=== PATIENT | male | born 1950 | race Caucasian/White ===

== ENCOUNTER 2017-06-06 12:02 | Day surgery (SDC) | payer MEDICARE, OTHER ==
[2017-06-06] MEDS ORDERED: MIDAZOLAM 1 MG/ML 2 ML INJ ×2 (14:10)
[2017-06-06] MEDS ORDERED: FENTAnyl 50 MCG/ML VIAL (14:10)
== END 2017-06-06 15:09 | disposition home or self-care (01) ==
LOC: GIL 12:02
DX: Z12.11 Encounter for screening for malignant neoplasm of colon (principal); D12.3 Benign neoplasm of transverse colon; K57.90 Diverticulosis of intestine, part unspecified, without perforation or abscess without bleeding; K64.8 Other hemorrhoids; E11.9 Type 2 diabetes mellitus without complications; I10 Essential (primary) hypertension
CPT/HCPCS: 82962; 88305